=== PATIENT | male | born 1965 | race Caucasian/White ===

== ENCOUNTER 2017-01-28 10:35 | Emergency (ER) | payer SELFPAY ==
[~2017-01-28] VITALS: Ht 182.9 cm; Wt 75.0 kg
[~2017-01-28 10:35] MED LIST: HYDR10TA16 PO
[2017-01-28 10:38] VITALS: BP 140/70; PULSE 126; RESP 20; TEMP 98.5; O2SAT 97
--- NOTE | 2017-01-28 11:22 | PD ---
Physical Exam Date Seen by Provider: Jan 28, 2017 Time Seen by Provider: 11:20 Narrative 51 year old male presents to the emergency department sent by his GI MD, Dr. Zhou, for abdominal pain. He states his GI physician believes it is his gallbladder. Patient states this has been ongoing for approximately a month, but states it worsened on Tuesday, 2 days ago. Vital Signs Reviewed. Patient awaiting bed placement. Data Data Last Documented VS Vital Signs Date Time Temp Pulse Resp B/P Pulse Ox O2 Delivery O2 Flow Rate FiO2 01/28/17 10:38 98.5 126 20 140/70 97 Room Air [facility] Supervised Visit with HENRIETTA: Zenobia Linares Jan 28, 2017 11:22
[2017-01-28] MEDS ORDERED: SODIUM CHLOR 0.9% 1000 ML INJ 1,000 ML IV SCH (11:47)
--- NOTE | 2017-01-28 11:54 | PD ---
HPI Chief Complaint: Abdominal Pain Time Seen by Provider: 11:27 Travel History International Travel<30 days: No Contact w/Intl Traveler<30days: No Traveled to known affect area: No History of Present Illness HPI The patient is a 51-year-old male who presents emergency department for abdominal pain. The patient is a 1 month history of intermittent abdominal pain which is located in epigastrium, radiates to right upper quadrant in the back, sharp, and occasionally associated with diarrhea for several days. The patient denies any nausea or vomiting with this current abdominal pain. The patient was seen by his gum scoring machine operator, Dr. Zhou, who ordered outpatient laboratory evaluation. The patient states she received a phone call from his gum scoring machine operator office today and advised him to come to the emergency department. The patient thinks one of his lab values may be abnormal, possibly the bilirubin. The patient denies any history of pancreatitis or cholelithiasis /cholecystitis. The patient denies any postprandial symptoms with his pain, states his pain is intermittent with no known alleviating or exacerbating factors. The patient denies any dysuria, frequency, or urgency. The patient does have a history of peptic ulcer disease with treatment in the past, but has been asymptomatic from peptic ulcer disease for several years and states that the symptoms are significantly different. PFSH Past Medical History Blood Disorders: No Depression: Yes Cancer: No Cardiovascular Problems: No Chemotherapy: No Diabetes: No Diminished Hearing: No Endocrine: No GERD: Yes Genitourinary: No Immune Disorder: No Musculoskeletal: Yes (BACK PROBLEMS ) Neurologic: No Reproductive: No Respiratory: No Immunizations Current: No Radiation Therapy: No Thyroid Disease: No Tetanus Vaccination: Unknown Influenza Vaccination: No ?: Not Past Surgical History Ear Surgery: Yes (Left ear tubes) Other Surgery: Yes (Laminectomy ) Social History Alcohol Use: No Tobacco Use: Yes (1 pack or less) Substance Use: No Allergies-Medications (Allergen,Severity, Reaction): Coded Allergies: Penicillin (Verified Allergy, Severe, HIVES, 06/03/12) Reported Meds & Prescriptions Reported Meds & Active Scripts Active Reported Lortab 10/500 (Acetaminophen/Hydrocodone Bitart) 10 Mg/500 Mg Tab 1 Tab PO BID FOR PAIN Review of Systems Except as stated in HPI: all other systems reviewed are Neg General / Constitutional: No: Fever Cardiovascular: No: Chest Pain or Discomfort Respiratory: No: Shortness of Breath Gastrointestinal: Positive: Abdominal Pain, No: Nausea, Vomiting, Changes in Bowel Habits, Loss of Appetite Genitourinary: No: Dysuria Musculoskeletal: No: Myalgias, Arthralgias Skin: No Rash Physical Exam Narrative GENERAL: Awake, alert, pleasant 51-year-old male who appears his stated age and is in no acute respiratory distress. SKIN: Focused skin assessment warm/dry. HEAD: Atraumatic. Normocephalic. EYES: Pupils equal and round. No injection or drainage. ENT: No nasal bleeding or discharge. Slightly dry mucous members. NECK: Trachea midline. No JVD. CARDIOVASCULAR: Regular, tachycardic with a heart rate of 110. RESPIRATORY: No accessory muscle use. Clear to auscultation. Breath sounds equal bilaterally. GASTROINTESTINAL: Abdomen soft, non-tender, nondistended. Negative Saenz's. Negative McBurney's. No rebound tenderness, guarding, or rigidity. MUSCULOSKELETAL: No obvious deformities. No clubbing. No cyanosis. No edema. NEUROLOGICAL: Awake and alert. No obvious cranial nerve deficits. Motor grossly within normal limits. Normal speech. PSYCHIATRIC: Appropriate mood and affect; insight and judgment normal. Data Data Last Documented VS Vital Signs Date Time Temp Pulse Resp B/P Pulse Ox O2 Delivery O2 Flow Rate FiO2 01/28/17 12:10 20 01/28/17 12:06 97 Room Air 01/28/17 10:38 98.5 126 140/70 Orders Complete Blood Count With Diff (01/28/17 11:47) Comprehensive Metabolic Panel (01/28/17 11:47) Lipase (01/28/17 11:47) Lactic Acid (01/28/17 11:47) Urinalysis - C+S If Indicated (01/28/17 11:47) Ct Abd/Pel W Iv Contrast(Rout) (01/28/17 11:47) Iv Access Insert/Monitor (01/28/17 11:47) Ecg Monitoring (01/28/17 11:47) Oximetry (01/28/17 11:47) Morphine Inj (Morphine Inj) (01/28/17 12:00) Ondansetron Inj (Zofran Inj) (01/28/17 12:00) Sodium Chlor 0.9% 1000 Ml Inj (Ns 1000 M (01/28/17 11:47) Sodium Chloride 0.9% Flush (Ns Flush) (01/28/17 12:00) Electrocardiogram (01/28/17 11:47) Iohexol 350 Inj (Omnipaque 350 Inj) (01/28/17 13:07) Labs Laboratory Tests Test 01/28/17 01/28/17 11:55 11:59 Lactic Acid Level 0.6 mmol/L White Blood Count 6.7 TH/MM3 Red Blood Count 5.38 MIL/MM3 Hemoglobin 16.8 GM/DL Hematocrit 48.5 % Mean Corpuscular Volume 90.2 FL Mean Corpuscular Hemoglobin 31.3 PG Mean Corpuscular Hemoglobin 34.7 % Concent Red Cell Distribution Width 13.1 % Platelet Count 286 TH/MM3 Mean Platelet Volume 6.8 FL Neutrophils (%) (Auto) 56.6 % Lymphocytes (%) (Auto) 27.3 % Monocytes (%) (Auto) 10.6 % Eosinophils (%) (Auto) 4.5 % Basophils (%) (Auto) 1.0 % Neutrophils # (Auto) 3.8 TH/MM3 Lymphocytes # (Auto) 1.8 TH/MM3 Monocytes # (Auto) 0.7 TH/MM3 Eosinophils # (Auto) 0.3 TH/MM3 Basophils # (Auto) 0.1 TH/MM3 CBC Comment DIFF FINAL Differential Comment Urine Color YELLOW Urine Turbidity CLEAR Urine pH 6.0 Urine Specific [place] 1.020 Urine Protein NEG mg/dL Urine Glucose (UA) NEG mg/dL Urine Ketones NEG mg/dL Urine Occult Blood SMALL Urine Nitrite NEG Urine Bilirubin NEG Urine Urobilinogen LESS THAN 2.0 MG/DL Urine Leukocyte Esterase NEG Urine RBC 3 /hpf Microscopic Urinalysis Comment CULT NOT INDICATED Sodium Level 139 MEQ/L Potassium Level 4.2 MEQ/L Chloride Level 101 MEQ/L Carbon Dioxide Level 32.2 MEQ/L Anion Gap 6 MEQ/L Blood Urea Nitrogen 12 MG/DL Creatinine 1.01 MG/DL Estimat Glomerular Filtration 78 ML/MIN Rate Random Glucose 83 MG/DL Calcium Level 9.3 MG/DL Total Bilirubin 0.6 MG/DL Aspartate Amino Transf 23 U/L (AST/SGOT) Alanine Aminotransferase 32 U/L (ALT/SGPT) Alkaline Phosphatase 91 U/L Total Protein 7.9 GM/DL Albumin 4.4 GM/DL Lipase 165 U/L [facility] Medical Decision Making Medical Screen Exam Complete: Yes Emergency Medical Condition: Yes Medical Record Reviewed: Yes Interpretation(s) Laboratory Tests Test 01/28/17 01/28/17 11:55 11:59 Lactic Acid Level 0.6 mmol/L White Blood Count 6.7 TH/MM3 Red Blood Count 5.38 MIL/MM3 Hemoglobin 16.8 GM/DL Hematocrit 48.5 % Mean Corpuscular Volume 90.2 FL Mean Corpuscular Hemoglobin 31.3 PG Mean Corpuscular Hemoglobin 34.7 % Concent Red Cell Distribution Width 13.1 % Platelet Count 286 TH/MM3 Mean Platelet Volume 6.8 FL Neutrophils (%) (Auto) 56.6 % Lymphocytes (%) (Auto) 27.3 % Monocytes (%) (Auto) 10.6 % Eosinophils (%) (Auto) 4.5 % Basophils (%) (Auto) 1.0 % Neutrophils # (Auto) 3.8 TH/MM3 Lymphocytes # (Auto) 1.8 TH/MM3 Monocytes # (Auto) 0.7 TH/MM3 Eosinophils # (Auto) 0.3 TH/MM3 Basophils # (Auto) 0.1 TH/MM3 CBC Comment DIFF FINAL Differential Comment Urine Color YELLOW Urine Turbidity CLEAR Urine pH 6.0 Urine Specific [place] 1.020 Urine Protein NEG mg/dL Urine Glucose (UA) NEG mg/dL Urine Ketones NEG mg/dL Urine Occult Blood SMALL Urine Nitrite NEG Urine Bilirubin NEG Urine Urobilinogen LESS THAN 2.0 MG/DL Urine Leukocyte Esterase NEG Urine RBC 3 /hpf Microscopic Urinalysis Comment CULT NOT INDICATED Sodium Level 139 MEQ/L Potassium Level 4.2 MEQ/L Chloride Level 101 MEQ/L Carbon Dioxide Level 32.2 MEQ/L Anion Gap 6 MEQ/L Blood Urea Nitrogen 12 MG/DL Creatinine 1.01 MG/DL Estimat Glomerular Filtration 78 ML/MIN Rate Random Glucose 83 MG/DL Calcium Level 9.3 MG/DL Total Bilirubin 0.6 MG/DL Aspartate Amino Transf 23 U/L (AST/SGOT) Alanine Aminotransferase 32 U/L (ALT/SGPT) Alkaline Phosphatase 91 U/L Total Protein 7.9 GM/DL Albumin 4.4 GM/DL Lipase 165 U/L EKG reveals normal sinus rhythm with a rate 84. No ischemic changes noted. Differential Diagnosis Differential diagnosis includes pancreatitis, peptic ulcer disease, cholecystitis, biliary colic, porcelain gallbladder, pancreatic cancer, gastric cancer, IBS, mesenteric ischemia. Narrative Course IV was established, labs are drawn and sent, and the patient was placed on cardiac telemetry monitoring and continuous pulse oximetry monitoring. EKG was ordered and interpreted. The patient was administered morphine, Zofran, and IV fluids. CT of the abdomen and pelvis with IV contrast was ordered. I doubt mesenteric ischemia, patient has no postprandial symptoms. Laboratory evaluation is unremarkable. CT of the abdomen and pelvis is unremarkable. I discussed the patient with Dr. Ferreira, who evaluated the patient's outpatient laboratory evaluation which is unremarkable. The patient is stable for outpatient follow-up and will be provided a copy of his CT results and lab results at discharge. The patient we placed back on a proton pump inhibitor, pain medication, and nausea medicine. Diagnosis Primary Impression: Abdominal pain Qualified Code: R10.13 - Epigastric pain Patient Instructions: General Instructions Additional Instructions: Medications as directed. Follow-up with your gum scoring machine operator. Please provide the patient a copy of his CT results and lab results at discharge. Med/Other Pt SpecificInfo: Prescription(s) given Scripts Ondansetron Odt (Zofran Odt)4 Mg Tab4 Mg SL Q6HR PRN (Nausea/Vomiting) #7 TAB Ref 0 Prov:Jasmeet Regalado MD 01/28/17 Hydrocodone-Acetaminophen ([place])5-325 mg Tab1 Tab PO Q6H PRN (PAIN) #12 TAB Ref 0 Prov:Jasmeet Regalado MD 01/28/17 Pantoprazole (Protonix)40 Mg Tab40 Mg PO DAILY #30 TAB Ref 0 Prov:Jasmeet Regalado MD 01/28/17 Disposition: 01 DISCHARGE HOME Condition: Stable Jasmeet Regalado MD Jan 28, 2017 11:54
[2017-01-28] MEDS ORDERED: ONDANSETRON HCL 4 MG/2 ML VIAL IVP ONE (12:00)
[2017-01-28] MEDS ORDERED: MORPHINE SULFATE 4 MG/ML INJ IV PUSH ONE (12:00)
[2017-01-28] MEDS ORDERED: SODIUM CHLORIDE 0.9% FLUSH 10 ML FLUSH IV FLUSH PRN (12:00)
[2017-01-28 12:06] VITALS: O2SAT 97
[2017-01-28 12:10] VITALS: RESP 20
[2017-01-28 12:17] LABS: AUTOMATED NEUTROPHIL # 3.8 TH/MM3 (1.8-7.7); BASOPHIL # 0.1 TH/MM3 (0-0.2); EOSINOPHIL # 0.3 TH/MM3 (0-0.4); EOSINOPHIL % 4.5 % (0.0-4.0); HEMATOCRIT 48.5 % (39.0-51.0); HEMO FLAGS DIFF FINAL; LYMPH % 27.3 % (9.0-44.0); LYMPHOCYTE # 1.8 TH/MM3 (1.0-4.8); MEAN CELL VOLUME 90.2 FL (80.0-100.0); MEAN CORPUSCULAR HEMOGLOBIN 31.3 PG (27.0-34.0); MEAN CORPUSCULAR HGB CONC 34.7 % (32.0-36.0); MONO % 10.6 % (0.0-8.0); NEUT % 56.6 % (16.0-70.0); PLATELET COUNT 286 TH/MM3 (150-450); RED BLOOD COUNT 5.38 MIL/MM3 (4.50-5.90); RED CELL DISTRIBUTION WIDTH 13.1 % (11.6-17.2); WHITE BLOOD COUNT 6.7 TH/MM3 (4.0-11.0)
[2017-01-28 12:27] LABS: BLOOD, URINE SMALL (NEG); COMMENT (UR) CULT NOT INDICATED; CULTURE IF INDICATED CULT NOT INDICATED; GLUCOSE,URINE NEG (NEG); KETONE, URINE NEG (NEG); NITRITE,URINE NEG (NEG); URINE COLOR YELLOW (YELLW/STRAW)
[2017-01-28 12:30] LABS: ANION GAP 6 MEQ/L (5-15); AST (GOT) 23 U/L (15-37); BICARBONATE 32.2 MEQ/L (21.0-32.0); BLOOD UREA NITROGEN 12 MG/DL (7-18); CHLORIDE 101 MEQ/L (98-107); GLOMERULAR FILTRATION RATE 78 ML/MIN (>89); POTASSIUM 4.2 MEQ/L (3.5-5.1); SODIUM (NA) 139 MEQ/L (136-145)
[2017-01-28 12:34] LABS: ALKALINE PHOSPHATASE 91 U/L (45-117); ALT (GPT) 32 U/L (12-78); TOTAL BILIRUBIN ADULT 0.6 MG/DL (0.2-1.0)
[2017-01-28] MEDS ORDERED: IOHEXOL 350 MG/ML 10 ML VIAL (for RAD DIAG) IV ONE (13:07)
--- NOTE | 2017-01-28 13:35 | RADRPT ---
EXAM DATE/TIME: 01/28/2017 12:53 [facility] COMPARISON: No previous studies available for comparison. INDICATIONS : Epigastric abdominal pain. IV CONTRAST: 75 cc Omnipaque 350 (iohexol) IV ORAL CONTRAST: No oral contrast ingested. RADIATION DOSE: 6.06 CTDIvol (mGy) MEDICAL HISTORY : Gastroesophageal reflux disease. SURGICAL HISTORY : Laminectomy. ENCOUNTER: Initial ACUITY: 2 days PAIN SCALE: 6/10 LOCATION: Epigastric pain. TECHNIQUE: Volumetric scanning of the abdomen and pelvis was performed. Using automated exposure control and ad justment of the mA and/or kV according to patient size, radiation dose was kept as low as reasonably achievable to obtain optimal diagnostic quality images. FINDINGS: LOWER LUNGS: The visualized lower lungs are clear. LIVER: Homogeneous density without lesion. There is no dilation of the biliary tree. No calcified gallston es. SPLEEN: Normal size without lesion. PANCREAS: Within normal limits. KIDNEYS: Normal in size and shape. There is no mass, stone or hydronephrosis. There is a 5 mm low density les ion at the lower pole the left kidney that is too small to characterize. ADRENAL GLANDS: Within normal limits. VASCULAR: There is no aortic aneurysm. BOWEL/MESENTERY: The stomach, small bowel, and colon demonstrate no acute abnormality. There is no free intraperitone al air or fluid. There is mild sigmoid diverticulosis. The appendix is normal. ABDOMINAL WALL: Within normal limits. RETROPERITONEUM: There is no lymphadenopathy. BLADDER: No wall thickening or mass. REPRODUCTIVE: Within normal limits. INGUINAL: There is no lymphadenopathy or hernia. MUSCULOSKELETAL: There are mild degenerative changes of the lumbar spine. CONCLUSION: 1. No acute finding is identified within the abdomen or pelvis. 2. Nonacute findings include mild atherosclerotic disease and sigmoid diverticulosis. Kalyan Cortez MD on January 28, 2017 at 13:30 Board Certified Radiologist. This report was verified electronically.
[2017-01-28] MEDS ORDERED: PROT40TA PO (14:53)
[2017-01-28] MEDS ORDERED: ZOFR4TAB3 SL (14:53)
[2017-01-28] MEDS ORDERED: NORC5TAB PO (14:53)
--- NOTE | 2017-01-29 15:46 | EKG ---
Date Performed: 01/28/2017 Time Performed: 12:43:52 PTAGE: 51 years EKG: Sinus rhythm NORMAL ECG PREVIOUS TRACING : 04/05/2012 09.05 Since previous tracing, no significant change noted DOCTOR: Max Ashton Interpretating Date/Time 01/29/2017 15:44:39
== END 2017-01-28 18:03 | disposition home or self-care (01) ==
LOC: NEPE 10:35
DX: R10.13 Epigastric pain (principal); Z87.11 Personal history of peptic ulcer disease; K21.9 Gastro-esophageal reflux disease without esophagitis; F17.200 Nicotine dependence, unspecified, uncomplicated
CPT/HCPCS: 74177; 80053; 81001; 83605; 83690; 85025; 93005; 96361; 96374; 96375; 99284; J2270; J2405; J7030; Q9967